=== PATIENT | male | born 1980 | race Caucasian/White ===

== ENCOUNTER 2019-08-13 19:48 | Emergency (ER) | payer SELFPAY ==
[2019-08-13] MEDS ORDERED: Tetracaine HCl/PF 0.5% 4 ML Bottle ONE (20:01)
--- NOTE | 2019-08-13 20:12 | EDM.PDOC ---
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 He complains of eye watering, itchiness , irritation, pain. Happened less than an hour prior to arrival. Does not wear contact lenses. States this has happened before. Has not tried any home remedies or medications prior to arrival. Denies any other symptoms including chest pain, shortness of breath, nausea, vomiting, fever. No sick contacts.] Review of systems: As per history of present illness and below otherwise all systems reviewed and negative. Past medical history: As per history of present illness and as reviewed below otherwise noncontributory. Surgical history: As per history of present illness and as reviewed below otherwise noncontributory. Social history: No reported history of drug or alcohol abuse. Family history: As per history of present illness and as reviewed below otherwise noncontributory. Physical exam: HEENT: Atraumatic, normocephalic, pupils reactive, <1 mm metallic appearing FB just inferior to the pupil, superficillay embedded in corne. mild conjunctival injection with clear, watery discharge. mucous membranes moist, throat clear, neck supple, nontender, trachea midline. Lungs: Clear to auscultation, breath sounds equal bilaterally, chest nontender. Heart: S1S2, regular, negative for clicks, rubs, or JVD. Abdomen: Soft, nondistended, nontender. Pelvis: Stable nontender. Genitourinary: Deferred. Rectal: Deferred. Extremities: Atraumatic, negative for cords or calf pain. Neurovascular unremarkable. Neuro: Awake, alert, oriented. Motor and sensory grossly intact throughout. Exam nonfocal. Diagnostics: [] Therapeutics: [] Impression: [] Plan: [] Definitive disposition and diagnosis as appropriate pending reevaluation and review of above. - Related Data Allergies Allergy/AdvReac Type Severity Reaction Status Date / Time No Known Allergies Allergy Verified 08/13/19 20:07 Home Meds: Home Meds Losartan [Cozaar] 25 mg PO DAILY 08/13/19 [History] Polymyxin B Sulf/Trimethoprim [Polytrim Eye Drops] 10 ml OP 6XDAY 7 Days #10 ml 08/13/19 [Rx] ED ROS GENERAL - Review of Systems Review Of Systems: Comprehensive ROS is negative, except as noted in HPI. ED EXAM GENERAL W FULL EYE - Physical Exam Exam: See Below Text/Narrative:: see H and P ED EYE w/ Add Procedure - Eye Procedure Eye FB Removal: Removal w/ Cotton Swab, Removal w/ Needle (knocked FB loose with edge of 18g needle. swiped away with moistened cotton) Eye Irrigated w/ Saline (ccs): 20 Course - Vital Signs Last Recorded V/S: Last Vital Signs Temp 36.5 C 08/13/19 20:00 Pulse 94 08/13/19 20:00 Resp 18 08/13/19 20:00 BP 154/101 H 08/13/19 20:00 Pulse Ox 98 08/13/19 20:00 - Orders/Labs/Meds Meds: Medications Discontinued Medications Generic Name Dose Route Start Last Admin Trade Name Elvin PRN Reason Stop Dose Admin Tetracaine HCl Confirm 08/13/19 20:01 Tetracaine 0.5% Steri-Unit Marifer Administered 08/13/19 20:02 Dose 4 ml .ROUTE .STK-MED ONE Departure - Departure Time of Disposition: 20:15 Disposition: Home, Self-Care 01 Clinical Impression: Corneal abrasion, Eye foreign body - Discharge Information Prescriptions: Polymyxin B Sulf/Trimethoprim [Polytrim Eye Drops] 10 ml OP 6XDAY 7 Days #10 ml Referrals: PCP,None [Primary Care Provider] - Forms: ED Department Discharge Additional Instructions: Take Abx eyedrops as prescribed for 5-7 days. The following information is given to patients seen in the emergency department who are being discharged to home. This information is to outline your options for follow-up care. We provide all patients seen in our emergency department with a follow-up referral. The need for follow-up, as well as the timing and circumstances, are variable depending upon the specifics of your emergency department visit. If you don't have a primary care physician on staff, we will provide you with a referral. We always advise you to contact your personal physician following an emergency department visit to inform them of the circumstance of the visit and for follow-up with them and/or the need for any referrals to a consulting specialist. The emergency department will also refer you to a specialist when appropriate. This referral assures that you have the opportunity for follow-up care with a specialist. All of these measure are taken in an effort to provide you with optimal care, which includes your follow-up. Under all circumstances we always encourage you to contact your private physician who remains a resource for coordinating your care. When calling for follow-up care, please make the office aware that this follow-up is from your recent emergency room visit. If for any reason you are refused follow-up, please contact the [facility] Emergency Department at and asked to speak to the emergency department charge nurse. Sepsis Event Note - Focused Exam Vital Signs: Vital Signs Temp Pulse Resp BP Pulse Ox 08/13/19 20:00 36.5 C 94 18 154/101 H 98 Date Exam was Performed: 08/13/19 Time Exam was Performed: 20:15
== END 2019-08-13 20:30 | disposition home or self-care (01) ==
LOC: MW.ED 19:48
DX: T15.01XA Foreign body in cornea, right eye, initial encounter (principal); Z79.899 Other long term (current) drug therapy
CPT/HCPCS: 65220; 99282; 99283